=== PATIENT | female | born 1995 ===

== ENCOUNTER 2022-08-06 15:48 | Outpatient (CLI) | payer OTHER | END 2022-08-06 17:01 | disposition home or self-care (01) | LOC: PRENATAL 15:48 | PROVIDERS: ATTEND Obstetrics & Gynecology Maternal & Fetal Medicine | DX: O35.9XX0 Maternal care for (suspected) fetal abnormality and damage, unspecified, not applicable or unspecified (principal); O35.3XX0 Maternal care for (suspected) damage to fetus from viral disease in mother, not applicable or unspecified; Z3A.21 21 weeks gestation of pregnancy ==

== ENCOUNTER 2022-12-07 05:26 | Inpatient (IN) | payer OTHER ==
[~2022-12-07] VITALS: Ht 160 cm; Wt 79.4 kg
[2022-12-07] MEDS ORDERED: PRENATAL VITAM1 EAC4 PO (06:31)
== END 2022-12-10 15:49 | disposition home or self-care (01) | DRG 807 ==
LOC: LDR 05:26 → OB/GYN 12-08 17:09
PROVIDERS: ADMIT Obstetrics & Gynecology; ATTEND Obstetrics & Gynecology
PROC: 4A1HXCZ Monitoring of Products of Conception, Cardiac Rate, External Approach (ICD-10-PCS; 2022-12-07)
PROC: 3E0P7VZ Introduction of Hormone into Female Reproductive, Via Natural or Artificial Opening (ICD-10-PCS; 2022-12-07)
PROC: 10E0XZZ Delivery of Products of Conception, External Approach (ICD-10-PCS; principal; 2022-12-08)
PROC: 0HQ9XZZ Repair Perineum Skin, External Approach (ICD-10-PCS; 2022-12-08)
PROC: 3E033VJ Introduction of Other Hormone into Peripheral Vein, Percutaneous Approach (ICD-10-PCS; 2022-12-08)
DX: O70.1 Second degree perineal laceration during delivery (principal); Z37.0 Single live birth; Z3A.39 39 weeks gestation of pregnancy; Z20.822 Contact with and (suspected) exposure to COVID-19